=== PATIENT | male | born 1985 | race Hispanic/Latino ===

== ENCOUNTER 2017-11-11 15:20 | Emergency (ER) | payer SELFPAY ==
--- NOTE | 2017-11-11 16:14 | RAD ---
PROCEDURE: Radiographs of the Left Shoulder HISTORY: Shoulder injury, h/o dislocations COMPARISON: No prior. FINDINGS: BONES: Grossly limited examination. Anterior dislocation at glenohumeral articulation. No gross evidence of fracture. Follow-up plain radiography advised due to limitation of current examination. Acromioclavicular appears intact. JOINTS: As above SOFT TISSUES: Normal. OTHER FINDINGS: None. IMPRESSION: Limited examination. Anterior dislocation glenohumeral articulation.
[2017-11-11] MEDS ORDERED: Midazolam 2 MG/2 ML VIAL ONE ×2 (16:19→16:23)
[2017-11-11] MEDS ORDERED: Naloxone 0.4 mg/ml Inj (Adult) ONE (16:23)
[2017-11-11] MEDS ORDERED: Flumazenil 0.1 mg/ml Inj (5ml) IVP ONE (16:24)
[2017-11-11 16:35] VITALS: RESP 18; O2SAT 100
--- NOTE | 2017-11-11 16:41 | ED PDOC ---
Upper Extremity Pain/Injury Time Seen by Provider: 11/11/17 15:29 Chief Complaint (Nursing): Upper Extremity Problem/Injury Chief Complaint (Provider): Upper Extremity Problem/Injury History Per: Patient History/Exam Limitations: no limitations Onset/Duration Of Symptoms: Sudden Onset Current Symptoms Are (Timing): Still Present Additional Complaint(s): 32 year old male who presents to the emergency department for an evaluation of left shoulder dislocation sustained while swimming around 1500 today. Denied any further medical complaints. Patient reported history of previous left shoulder dislocation with last incident occurring 12 years ago. PMD: none provided Past Medical History Reviewed: Historical Data, Nursing Documentation, Vital Signs Vital Signs: Last Vital Signs Temp 98.6 F 11/11/17 15:25 Pulse 55 L 11/11/17 16:30 Resp 18 11/11/17 16:30 BP 159/94 H 11/11/17 16:30 Pulse Ox 100 11/11/17 16:30 - Medical History PMH: No Chronic Diseases - Surgical History Surgical History: No Surg Hx - Family History Family History: States: Unknown Family Hx - Social History Current smoker - smoking cessation education provided: No Ex-Smoker (has not smoked in the last 12 months): No Alcohol: None Drugs: Denies - Home Medications Home Medications: Ambulatory Orders Medication Instructions Recorded Naproxen [Naprosyn] 500 mg PO BID PRN #15 tablet 11/11/17 - Allergies Allergies/Adverse Reactions: Allergies Allergy/AdvReac Type Severity Reaction Status Date / Time No Known Allergies Allergy Verified 11/11/17 15:25 Review of Systems ROS Statement: Except As Marked, All Systems Reviewed And Found Negative Musculoskeletal: Positive for: Shoulder Pain (left shoulder dislocation) Physical Exam - Reviewed Nursing Documentation Reviewed: Yes Vital Signs Reviewed: Yes - Physical Exam Appears: Positive for: Non-toxic, Uncomfortable Head Exam: Positive for: ATRAUMATIC, NORMAL INSPECTION, NORMOCEPHALIC Cardiovascular/Chest: Positive for: Regular Rate, Rhythm, Chest Non Tender Respiratory: Positive for: Normal Breath Sounds. Negative for: Decreased Breath Sounds, Respiratory Distress Pulses-Radial (L): 2+ Extremity: Positive for: Normal ROM (left upper digits), Deformity (obviously noted to left shoulder). Negative for: Swelling (left arm) Neurologic/Psych: Positive for: Alert (x3), Oriented. Negative for: Motor/ Sensory Deficits - ECG O2 Sat by Pulse Oximetry: 100 (RA) Pulse Ox Interpretation: Normal Medical Decision Making Medical Decision Making: Initial Impression: Left shoulder injury Initial Plan: * Morphine 2mg IV * Fentanyl 25mcg IVP * Xray shoulder (left) * Midazolam 2mg IV ____ Time: 1612 --Xray shoulder (left) FINDINGS: BONES: Grossly limited examination. Anterior dislocation at glenohumeral articulation. No gross evidence of fracture. Follow-up plain radiography advised due to limitation of current examination. Acromioclavicular appears intact. JOINTS: As above SOFT TISSUES: Normal. OTHER FINDINGS: None. IMPRESSION: Limited examination. Anterior dislocation glenohumeral articulation. Time: 1721 --Xray shoulder (left) POST REDUCTION FINDINGS: BONES: A single view is submitted. This is a limited examination. The patient is status post successful close reduction of the previously identified anteriorly dislocated humeral head at the glenohumeral articulation. There is no fracture identified. The acromioclavicular joint appears preserved. JOINTS: As above SOFT TISSUES: Normal. OTHER FINDINGS: None. IMPRESSION: Successful close reduction anterior dislocation left glenohumeral articulation. Limited examination for evaluation of fracture. 19:35 Pt AAOX3, steady gait. Scribe Attestation: Documented by July Suazo, acting as a scribe for Yue Boles MD. Provider Scribe Attestation: All medical record entries made by the Scribe were at my direction and personally dictated by me. I have reviewed the chart and agree that the record accurately reflects my personal performance of the history, physical exam, medical decision making, and the department course for this patient. I have also personally directed, reviewed, and agree with the discharge instructions and disposition. Procedures - Joint Reduction Joint Reduction Site: shoulder (L) Conscious Sedation: Yes Reduction Attempts: 2 Pre-Procedure NV Exam: Yes Post Joint Reduction Film: joint reduced Disposition - Clinical Impression Clinical Impression: Shoulder dislocation - Disposition Referrals: Robinson Mcgill MD [Medical Doctor] - Condition: IMPROVED Prescriptions: Naproxen [Naprosyn] 500 mg PO BID PRN #15 tablet PRN Reason: Pain, Moderate (4-7) Instructions: Shoulder Dislocation (ED), Moderate Sedation (ED) Forms: [facility] (Maltese)
[2017-11-11] MEDS ORDERED: Midazolam 2 MG/2 ML VIAL IV ONE (16:43)
--- NOTE | 2017-11-11 17:23 | RAD ---
PROCEDURE: Radiographs of the Left Shoulder HISTORY: Post-reduction COMPARISON: 11/11/2017 3:36 p.m. FINDINGS: BONES: A single view is submitted. This is a limited examination. The patient is status post successful close reduction of the previously identified anteriorly dislocated humeral head at the glenohumeral articulation. There is no fracture identified. The acromioclavicular joint appears preserved. JOINTS: As above SOFT TISSUES: Normal. OTHER FINDINGS: None. IMPRESSION: Successful close reduction anterior dislocation left glenohumeral articulation. Limited examination for evaluation of fracture.
[2017-11-11 18:25] VITALS: TEMP 98.3
[2017-11-11 18:55] VITALS: BP 136/79; PULSE 78
== END 2017-11-11 18:56 | disposition home or self-care (01) ==
LOC: H.ER 15:20
DX: S43.005A Unspecified dislocation of left shoulder joint, initial encounter (principal); X50.9XXA Other and unspecified overexertion or strenuous movements or postures, initial encounter; Y92.89 Other specified places as the place of occurrence of the external cause
CPT/HCPCS: 23655; 73030; 96374; 96375; 99284; J2250; J2270; J3010